=== PATIENT | female | born 1980 | race Caucasian/White ===

== ENCOUNTER → 2018-12-20 | Outpatient (CLI) | payer BC ==
--- NOTE | 2018-12-20 13:53 | MM ---
Reason for exam: clinical finding. History: Took hormonal contraceptives for 11 years beginning at age 14. Physical Findings: Nurse Summary: 2cm nodule in the left breast at 2 o'clock (nurse mj). MG 3D Diag Mammo W/Cad MARILYN Bilateral CC, MLO, and XCCL view(s) were taken. The breast tissue is heterogeneously dense. This may lower the sensitivity of mammography. Finding: There is a 30 mm round mass in the subareolar position of the left breast. These results were verbally communicated with the patient and result sheet given to the patient on 12/20/18. ASSESSMENT: Incomplete: need additional imaging evaluation, BI-RAD 0 RECOMMENDATION: Ultrasound of the left breast.
--- NOTE | 2018-12-20 13:55 | USB ---
Reason for exam: additional evaluation requested from abnormal screening. History: Took hormonal contraceptives for 11 years beginning at age 14. US Breast LT Left complete breast ultrasound includes all four quadrants, the retroareolar region and axilla. Finding demonstrates a 3.3 x 2.0 x 2.3cm oval, cystic lesion at 12 o'clock, a 1.1 x 0.3 x 0.5cm cystic lesion at 2 o'clock and a 0.5 x 0.5 x 0.6cm cystic cluster at 3 o'clock. Simple cysts. These results were verbally communicated with the patient and result sheet given to the patient on 12/20/18. ASSESSMENT: Benign, BI-RAD 2 RECOMMENDATION: Routine screening mammogram of both breasts in 1 year.
== END ==
LOC: RADMAMWWP 12:36
PROVIDERS: ATTEND Family Medicine
DX: N63.20 Unspecified lump in the left breast, unspecified quadrant (principal)
CPT/HCPCS: 77062; 77066

== ENCOUNTER → 2019-01-31 | Outpatient (CLI) | payer BC ==
[2019-01-31 14:09] VITALS: BP 116/77; PULSE 65; RESP 16; TEMP 98.4; BMI 21.2
--- NOTE | 2019-01-31 14:26 | P.GSHP ---
History of Present Illness H&P Date: 01/31/19 Chief Complaint: abnormal mammogram and ultrasound of the left breast The patient is a 38 year old white female with a complaint of a nodule in the left breast. The patient noticed a nodule in her left breast at the 12 o'clock position on December 01. She subsequently had a mammogram and ultrasound performed on 01/04. The mammogram was a bilateral mammogram which revealed a 30 mm round mass in the subareolar position of the left breast. Ultrasound revealed a 3.3 x 2.3 cm cystic lesion at 12:00, 1.1 x 0.5 cm cystic lesion at 2:00, and a 0.5 x 0.5 cystic cluster at 3:00. All were felt to be simple cysts. These were her first radiographic evaluation of her breast. The patient then had an aspiration preformed initially there was at least partially partial resolution of the lesion. The patient experienced nipple pain prior to the aspiration and continues to experience nipple pain at this time. Within 4 days the area of cystic nodularity had increased in size again. The nipple discomfort continues. The patient feels an area of nodularity recurrent in the same area. She had never had anything like this in the past. She drinks 2 cups of coffee in AM and a 12 oz pop with lunch. She smokes 1/2 PPD, her smokes. She eats chocolate occasionally. Her menstral periods are getting closer together, the pain and nodularity are not related to her periods. She is not taking any hormones or BCP. Family History: none Hormonal history: Menarche: 11 , at 16, bresast fed: no periods: regular but closer together BCP: 4 years hormones: none Past surgical history: 1. Medical history: Negative Social history: Smoked: Half a pack per day Alcohol: beers on weekend drugs: none - Constitutional Constitutional: Denies chills, Denies fever - EENT Eyes: denies blurred vision, denies pain Ears: deny: decreased hearing, tinnitus Ears, nose, mouth and throat: Denies headache, Denies sore throat - Breasts Breasts: bilateral: as per HPI - Cardiovascular Cardiovascular: Denies chest pain, Denies shortness of breath - Respiratory Respiratory: Denies cough, Denies 7 - Gastrointestinal Gastrointestinal: Denies abdominal pain, Denies diarrhea, Denies nausea, Denies vomiting - Genitourinary (Female) Genitourinary: Denies dysuria, Denies hematuria - Menstruation Menstruation: Reports period normal - Musculoskeletal Comment: none - Integumentary Comment: cyst left side of nose Integumentary: Denies pruritus, Denies rash - Neurological Neurological: Denies numbness, Denies weakness - Psychiatric Psychiatric: Denies anxiety, Denies depression - Endocrine Endocrine: Denies fatigue, Denies weight change - Hematologic/Lymphatic Comment: none - Allergic/Immunologic Comment: none Medications and Allergies Home Medications Medication Instructions Recorded Confirmed Type No Known Home Medications 01/31/19 01/31/19 History Allergies Allergy/AdvReac Type Severity Reaction Status Date / Time No Known Allergies Allergy Unverified 01/31/19 14:06 Surgical - Exam BMI 21.3 - General well developed, well nourished, no distress - Eyes normal ocular movement - ENT no hearing loss, no congestion - Neck no masses, trachea midline - Respiratory normal expansion, normal respiratory effort, clear to auscultation - Cardiovascular Rhythm: regular Heart Sounds: normal: S1, S2 - Abdomen Abdomen: soft, non tender, no guarding, no rigid, no rebound - Integumentary normal turgor - Neurologic no disoriented, no combative - Musculoskeletal normal gait, normal posture - Psychiatric oriented to time, oriented to person, oriented to place, speech is normal, memory intact breast exam: Right breast: Multi-positional exam no dominant masses or nodules of concern, dense fiber cystic breast tissue Right axilla: No adenopathy of concern Left breast: At the 12 o'clock position there is an area of increased nodularity which is approximately 3 cm in size, dense breast tissue with fibrocystic changes Left axilla: Shotty adenopathy Results Mammogram and ultrasound results reviewed Assessment and Plan Assessment: Impression: 1. Nodule left breast 2. Fibrocystic breast changes 3. Abnormal mammogram and ultrasound 4. Pain left breast at nipple site 5. Cyst by her nose Plan: 1. Cystic aspiration of the area on the left breast 2. If this area recurs most likely resection of the area in the operating room 3. Patient counseled to stop caffeine and nicotine intake CC: Dr. Arroyo
--- NOTE | 2019-01-31 14:30 | P.PCN ---
Date of Procedure: 01/31/19 Preoperative Diagnosis: mass left breast Postoperative Diagnosis: same Procedure(s) Performed: cystic aspiration Surgeon: Vanessa Marrero Estimated Blood Loss (ml): 0 IV fluids (ml): 0 Pathology: other (cystic fluid) Condition: stable Disposition: same day Indications for Procedure: recurrent lesion left breast Description of Procedure: The area of concern in the left breast was prepped using alcohol. A 22-gauge needle on a 10 mL syringe was used to aspirate the lesion. 7 mL of dark fluid was obtained. There was complete resolution of the lesion. Dressing was applied. The patient will follow up next week. The specimen is sent for patho logy.
== END ==
LOC: WWCWWP 13:50
PROVIDERS: ATTEND Family Medicine
DX: N64.9 Disorder of breast, unspecified (principal)
CPT/HCPCS: 88108; 88305

== ENCOUNTER → 2019-02-08 | Outpatient (CLI) | payer BC ==
[2019-02-08 08:24] VITALS: BP 149/73; PULSE 71; RESP 16; TEMP 98.4; BMI 21.2
--- NOTE | 2019-02-08 08:54 | P.PN ---
Subjective Progress Note Date: 02/08/19 Josefina is a 38-year-old [place] [id number]. At that time she was noted to have a cystic abnormality at the 3 o'clock position of the left breast. The cyst had previously been aspirated and had recurred. Additionally she was complaining of some pain posterior to the nipple area. The patient had aspiration of the cyst and [id number]. 7 mL of dark fluid was obtained. Cytology revealed degenerating cellular material and scattered clusters of reactive/degenerated apocrine lining cells consistent with apocrine cyst contents. The patient states that the area of nodularity has not recurred. She continues to have some mild discomfort posterior to her nipple on the left side but this is resolving. She continues to drink 2 cups of coffee per day but has cut out her pop consumption. She continues to smoke half a pack of cigarettes per day. Objective - Vital Signs Vital signs: Vital Signs Temp 98.4 F 02/08/19 08:17 Pulse 71 02/08/19 08:17 Resp 16 02/08/19 08:17 BP 149/73 02/08/19 08:17 Pulse Ox 99 02/08/19 08:17 Intake & Output 02/07/19 02/08/19 02/08/19 18:59 06:59 18:59 Weight 54.431 kg - Exam BMI 21.3 - Constitutional General appearance: Present: average body habitus - EENT Eyes: Present: EOMI ENT: Present: hearing grossly normal - Neck Neck: Present: normal ROM - Integumentary Integumentary Comment(s): Left breast examination does not reveal any recurrence of the cystic lesion On examination no dominant masses or nodules of concern were identified - Musculoskeletal Musculoskeletal: Present: gait normal - Psychiatric Psychiatric: Present: A&O x's 3, appropriate affect, intact judgment & insight Assessment and Plan Assessment: Impression: 1. Resolution of cystic lesion left breast which has not recurred 2. Fibrocystic breast changes 3. Decreased pain left breast Plan: 1. Patient to continue surveillance of her breast if she has recurrence of the cyst is concerned I would like to see her immediately 2. Repeat left breast ultrasound and physical exam in 6 months 3. Patient counseled to stop caffeine and nicotine intake Cc: Dr. Arroyo
== END ==
LOC: WWCWWP 08:05
PROVIDERS: ATTEND Surgery
DX: Z53.9 Procedure and treatment not carried out, unspecified reason (principal)

== ENCOUNTER → 2019-06-21 | Outpatient (CLI) | payer BC ==
--- NOTE | 2019-06-21 13:44 | USB ---
Reason for exam: clinical finding. History: Took hormonal contraceptives for 11 years beginning at age 14. Physical Findings: Nurse Summary: Patient complains of intermittent left nipple pain x 3 months (nurse TM). US Breast Limited LT Left limited breast ultrasound including focal area of concern, retroareolar and axilla demonstrates a 0.9 x 0.5 x 0.8cm oval, cystic lesion at 1 o'clock possibly the prior drained cyst, previously measured 3.3cm, a 0.3 x 0.3 x 0.4cm oval, cystic lesion at 2 o'clock, a 0.4 x 0.4 x 0.4cm round, cystic lesion at 3 o'clock and a 0.7 x 0.3 x 0.6cm oval, cystic cluster at 3 o'clock. These results were verbally communicated with the patient and result sheet given to the patient on 06/21/19. ASSESSMENT: Benign, BI-RAD 2 RECOMMENDATION: Routine screening mammogram of both breasts in 5 months. Back on schedule for November 2019.
== END | disposition home or self-care (01) ==
LOC: RADUSWWP 09:51
PROVIDERS: ATTEND Surgery
DX: R92.8 Other abnormal and inconclusive findings on diagnostic imaging of breast (principal)

== ENCOUNTER → 2019-06-21 | Outpatient (CLI) | payer BC ==
[2019-06-21 13:37] VITALS: BP 111/71; PULSE 69; RESP 16; TEMP 98.2; BMI 20.7
--- NOTE | 2019-06-21 14:17 | P.PN ---
Subjective Progress Note Date: 06/21/19 Principal diagnosis: breast cyst Josefina is a 38-year-old white female who was initially seen in January 2019. At that time she was noted to have a cystic abnormality at the 3 o'clock position of the left breast. This cyst had previously been aspirated and then recurred. Additionally she was complaining at that time of some pain posterior to the nipple area. The patient had aspiration of the cyst and 7 mL of dark fluid was obtained. Cytology revealed degeneration cellular material and scattered clusters of reactive/degenerated apocrine lining cells consistent with apocrine cyst contents. The patient states that the nodularity has resolved. She will intermittently have some pinching sensation posterior to the nipple on the left. She has no complaints of any pain or nodularity in the right breast. She continues to drink 2 cups of coffee per day. She drinks pop 1 per day. She continues to smoke half a pack of cigarettes per day. She is not exposed to secondhand smoke. She is chocolate only occasionally. She does not take any hormones she does not use control pills. An ultrasound performed on this felt to be benign BIRADS 2 and routine screening of the breast in 5 months recommended. The ultrasound revealed cystic lesions at 1:00, 2:00, and 3:00. Family History: none Hormonal history: Menarche: 11 , at 16, breast fed: no periods: regular but closer together BCP: 4 years hormones: none Past surgical history: 1. Medical history: Negative Social history: Smoked: Half a pack per day Alcohol: beers on weekend drugs: none - Constitutional Constitutional: Denies chills, Denies fever - EENT Eyes: denies blurred vision, denies pain Ears: deny: decreased hearing, tinnitus Ears, nose, mouth and throat: Denies headache, Denies sore throat - Breasts Breasts: bilateral: as per HPI - Cardiovascular Cardiovascular: Denies chest pain, Denies shortness of breath - Respiratory Respiratory: Denies cough, Denies 7 - Gastrointestinal Gastrointestinal: Denies abdominal pain, Denies diarrhea, Denies nausea, Denies vomiting - Genitourinary (Female) Genitourinary: Denies dysuria, Denies hematuria - Menstruation Menstruation: Reports period normal - Musculoskeletal Comment: none - Integumentary Comment: cyst left side of nose Integumentary: Denies pruritus, Denies rash - Neurological Neurological: Denies numbness, Denies weakness - Psychiatric Psychiatric: Denies anxiety, Denies depression - Endocrine Endocrine: Denies fatigue, Denies weight change - Hematologic/Lymphatic Comment: none - Allergic/Immunologic Comment: Objective - Vital Signs Vital signs: Vital Signs Temp 98.2 F 06/21/19 13:34 Pulse 69 06/21/19 13:34 Resp 16 06/21/19 13:34 BP 111/71 06/21/19 13:34 Pulse Ox 98 06/21/19 13:34 Intake & Output 06/20/19 06/21/19 06/21/19 18:59 06:59 18:59 Weight 53.07 kg - Exam BMI 20.7 - Constitutional General appearance: Present: thin - EENT Eyes: Present: EOMI ENT: Present: hearing grossly normal - Neck Neck: Present: normal ROM - Respiratory Respiratory: bilateral: CTA - Cardiovascular Rhythm: regular Heart sounds: normal: S1, S2 - Gastrointestinal General gastrointestinal: Present: soft - Integumentary Integumentary: Present: normal turgor - Psychiatric Psychiatric: Present: A&O x's 3, appropriate affect, intact judgment & insight - Additional findings Additional findings: Breast examination: Right breast: Multi-positional exam fibrocystic changes no dominant masses or nodules of concern Right axilla: No adenopathy of concern Left breast: Multi-positional exam no dominant masses or nodules of concern particularly attention to the posterior area over area does not reveal any specific nodularity of concern Left axilla: No adenopathy of concern Assessment and Plan Assessment: Impression: 1. Mastodynia improved 2. Patient uses caffeine/nicotine which contributes to the mastodynia 3. Fibrocystic breast disease 4. Abnormal left breast ultrasound/cyst Plan: 1. Bilateral mammogram in 5 months with physician exam at that time 2. Reassurance that there is not appear to be in the malignancy in either breast 3. Patient recommended to stop caffeine and nicotine intake Cc:
== END ==
LOC: WWCWWP 13:25
PROVIDERS: ATTEND Surgery
DX: Z53.9 Procedure and treatment not carried out, unspecified reason (principal)